=== PATIENT | male | born 1995 | race Caucasian/White ===

== ENCOUNTER 2017-09-06 13:50 | Emergency (ER) | payer BC ==
[~2017-09-06] VITALS: Ht 180.3 cm; Wt 90.4 kg
[2017-09-06] MEDS ORDERED: ONDANSETRON HCL 4 MG ORAL DISINTEGRATING TAB SL ONE (15:00)
[2017-09-06] MEDS ORDERED: IBUPROFEN 200 MG TAB PO ONE (15:00)
[2017-09-06] MEDS ORDERED: ACETAMINOPHEN 325 MG TAB PO ONE (15:00)
[2017-09-06] MEDS ORDERED: PEPCID20 MG PO (15:39)
[2017-09-06] MEDS ORDERED: IBUPROFEN400 MG PO (15:39)
[2017-09-06] MEDS ORDERED: AMOXICILLIN250 MG PO (16:18)
== END 2017-09-06 15:45 | disposition home or self-care (01) ==
LOC: FSED 13:50
DX: R50.9 Fever, unspecified (principal); B27.00 Gammaherpesviral mononucleosis without complication
CPT/HCPCS: 80048; 80076; 85025; 86308; 87400; 99283